=== PATIENT | female | born 1970 | race African-American/Black ===

== ENCOUNTER 2021-09-13 22:47 | Emergency (ER) | payer OTHER ==
[~2021-09-13] VITALS: Ht 165.1 cm; Wt 81.6 kg
[2021-09-13] MEDS ORDERED: CETI10TA74 PO (23:45)
[2021-09-13] MEDS ORDERED: FAMO-63 PO (23:45)
[2021-09-13] MEDS ORDERED: METH4TAB2 PO (23:45)
--- NOTE | 2021-09-13 23:45 | PHYS DOC ---
General Adult EDM: Chief Complaint: SKIN RASH/ABSCESS HPI: HPI: Patient is a 50 year old female who presents with hives type rash to her chest, legs, thighs that is very itchy and she states at times it [place]. She states she has been putting icy hot and fungal foot cream on the area. Patient states that she did not use any new soaps or creams or medications. This is been going on for the last 2 weeks. She has not tried any kind of allergy medication. She denies any shortness of breath, throat swelling, wheezing, chest pain, chest tightness, abdominal pain, nausea, vomiting, fever, headache, dizziness, syncope. Rates her discomfort at a 7 out of 10. Review of Systems: Review of Systems: Constitutional: Denies fever or chills. [] Eyes: Denies change in visual acuity. [] HENT: Denies nasal congestion or sore throat. [] Respiratory: Denies cough or shortness of breath. [] Cardiovascular: Denies chest pain or edema. [] GI: Denies abdominal pain, nausea, vomiting, bloody stools or diarrhea. [] : Denies dysuria. [] Musculoskeletal: Denies back pain or joint pain. [] Integument: + Generalized allergic dermatitis type rash. [] Neurologic: Denies headache, focal weakness or sensory changes. [] Endocrine: Denies polyuria or polydipsia. [] Lymphatic: Denies swollen glands. [] Psychiatric: Denies depression or anxiety. [] Heart Score: C/O Chest Pain: No Allergies: Allergies: Allergies Coded Allergies Type Severity Reaction Last Updated Verified latex Allergy Severe BLISTER 09/13/21 Yes Physical Exam: PE: Constitutional: Well developed, well nourished, no acute distress, non-toxic appearance. [] HENT: Normocephalic, atraumatic, bilateral external ears normal, oropharynx moist, no oral exudates, nose normal. [] Eyes: PERRLA, EOMI, conjunctiva normal, no discharge. [] Neck: Normal range of motion, no tenderness, supple, no stridor. [] Cardiovascular:Heart rate regular rhythm, no murmur [] Lungs & Thorax: Bilateral breath sounds clear to auscultation [] Abdomen: Bowel sounds normal, soft, no tenderness, no masses, no pulsatile masses. [] Skin: Warm, dry, no erythema, hives/allergic dermatitis type rash to chest, arms bilaterally and legs. [] Back: No tenderness, no CVA tenderness. [] Extremities: No tenderness, no cyanosis, no clubbing, ROM intact, no edema. [] Neurologic: Alert and oriented X 3, normal motor function, normal sensory function, no focal deficits noted. [] Psychologic: Affect normal, judgement normal, mood normal. [] EKG: EKG: [] Radiology/Procedures: Radiology/Procedures: [] Course & Med Decision Making: Course & Med Decision Making Pertinent Labs and Imaging studies reviewed. (See chart for details) See HPI. Alert and oriented x4. Ambulatory steady gait. Speaks in full clear sentences. No wheezing. Uvula midline. No swelling to the throat, tongue or lips. No rash to the face. No swelling to any extremities. Lungs are clear to all stational lobes. Dermatitis/hives type rash to chest, bilateral arms and on her thighs. Vital signs are within normal limits. Patient is given prednisone, Pepcid, Zyrtec in the ED. She will be given a prescription and is told to follow-up with a primary care physician. Patient is concerned because she does not know what is causing this. Patient is educated that she needs to follow-up with her primary care physician and they can do allergy testing. After leaving the room patient tells registration that she forgot to let me know that she stuck a tampon up into her vaginal canal 2 days ago but had cut it in half so it would go up further. She states that it is still up in her vaginal canal and she needs it pulled out. [] Mariajose Disclaimer: Mariajose Disclaimer: This electronic medical record was generated, in whole or in part, using a voice recognition dictation system. Departure Departure Impression: Primary Impression: Rash and nonspecific skin eruption Additional Impression: Vaginal foreign body Disposition: 01 HOME / SELF CARE / HOMELESS Condition: STABLE Referrals: UNKNOWN PCP NAME (PCP) Patient Instructions: Hives Additional Instructions: Follow-up with primary care provider. Take medication as prescribed and with food. Drink plenty of fluids. If at any point he began wheezing and cannot breathe or your face starts to swell return emergency room. Scripts Metronidazole (METRONIDAZOLE) 500 Mg Tablet 1 TAB PO BID for 7 Days, #14 TAB 0 Refills Prov: MICHELE MA APRN 09/14/21 Doxycycline Monohydrate (DOXYCYCLINE MONOHYDRATE) 100 Mg Capsule 1 CAP PO BID, #20 CAP Prov: MICHELE MA APRN 09/14/21 Methylprednisolone (MEDROL) 4 Mg Tab.ds.pk 1 PKG PO UD, #1 PKG Prov: MICHELE MA APRN 09/13/21 Famotidine (PEPCID) 20 Mg Tablet 20 MG PO BID, #10 TAB Prov: MICHELE MA APRN 09/13/21 Cetirizine Hcl (ZYRTEC) 10 Mg Tablet 1 TAB PO DAILY, #30 TAB Prov: MICHELE MA APRN 09/13/21 MICHELE MA APRN Sep 13, 2021 23:45
[2021-09-14] MEDS ORDERED: predniSONE 10 MG TABLET PO ONE
[2021-09-14] MEDS ORDERED: FAMOTIDINE 20 MG TABLET. PO ONE
[2021-09-14] MEDS ORDERED: CETIRIZINE HCL 10 MG TABLET. PO ONE
[2021-09-14] MEDS ORDERED: DOXY-181 PO (00:16)
[2021-09-14] MEDS ORDERED: METR-34 PO (00:16)
[2021-09-14] MEDS ORDERED: metroNIDAZOLE 500 MG TABLET PO ONE (00:30)
[2021-09-14] MEDS ORDERED: DOXYCYCLINE HYCLATE 100 MG TABLET PO ONE ×2 (00:30→01:00)
[2021-09-14] MEDS ORDERED: cefTRIAXone IM 1 GM VIAL IM ONE (00:30)
[2021-09-14] MEDS ORDERED: LIDOCAINE 1% Multi-Dose 20 ML VIAL. ONE (00:49)
[2021-09-14 01:20] VITALS: BP 134/81
== END 2021-09-14 01:20 | disposition home or self-care (01) ==
LOC: ER 22:47
DX: T19.2XXA Foreign body in vulva and vagina, initial encounter (principal); R21 Rash and other nonspecific skin eruption; Z91.040 Latex allergy status; X58.XXXA Exposure to other specified factors, initial encounter; Y93.89 Activity, other specified; Y92.89 Other specified places as the place of occurrence of the external cause; Y99.8 Other external cause status
CPT/HCPCS: 96372; 99284; J0696; J7512